=== PATIENT | female | born 1940 | race Caucasian/White ===

== ENCOUNTER → 2017-11-27 | Outpatient (CLI) | payer MEDICARE | END | disposition home or self-care (01) | LOC: PETCFH 09:47 | PROVIDERS: ATTEND Neurological Surgery | DX: M46.94 Unspecified inflammatory spondylopathy, thoracic region (principal) | CPT/HCPCS: 78306; A9503 ==

== ENCOUNTER → 2017-11-28 | Outpatient (CLI) | payer MEDICARE | END | disposition home or self-care (01) | LOC: CFH 08:10 | PROVIDERS: ATTEND Neurological Surgery | DX: M48.56XD Collapsed vertebra, not elsewhere classified, lumbar region, subsequent encounter for fracture with routine healing (principal); M48.54XD Collapsed vertebra, not elsewhere classified, thoracic region, subsequent encounter for fracture with routine healing | CPT/HCPCS: 72131 ==

== ENCOUNTER → 2017-11-29 | Outpatient (CLI) | payer MEDICARE | LOC: CFH 13:49 | PROVIDERS: ATTEND Neurological Surgery | DX: Z13.820 Encounter for screening for osteoporosis (principal); M81.0 Age-related osteoporosis without current pathological fracture; N95.9 Unspecified menopausal and perimenopausal disorder | CPT/HCPCS: 77080 ==

== ENCOUNTER → 2018-06-12 | Outpatient (CLI) | payer MEDICARE | END | disposition home or self-care (01) | LOC: CFH 10:10 | PROVIDERS: ATTEND Nurse Practitioner Gerontology | DX: Z12.2 Encounter for screening for malignant neoplasm of respiratory organs (principal); J84.10 Pulmonary fibrosis, unspecified; R91.1 Solitary pulmonary nodule; J43.2 Centrilobular emphysema; Z87.891 Personal history of nicotine dependence | CPT/HCPCS: G0297 ==